=== PATIENT | male | born 1965 | race Caucasian/White ===

== ENCOUNTER 2016-04-17 10:02 | Emergency (ER) | payer OTHER ==
--- NOTE | 2016-04-17 10:42 | EDDOCDS ---
Nurse's Notes [facility] Name: Leif Leahy Age: 50 yrs Sex: Male : 1965 Arrival Date: 04/17/2016 Time: 10:02 Bed Triage 2 Private MD: [facility] Allyson Tomales Diagnosis: Dysuria;Urinary tract infection, site not specified Presentation: 04/17 10:05 Presenting complaint: Patient states: burning with urination. Reports thinks may be kr3 related to new body wash. Adult Sepsis Screening: The patient does not have new or worsening altered mentation. Patient's respiratory rate is less than 22. Systolic blood pressure is greater than 100. Patient has a qSOFA score of 0- Negative Sepsis Screen. Suicide/Homicide risk assessment- the patient denies having any suicidal and/or homicidal ideations and does not present with any other emotional, behavioral or mental health complaints. Status: Patient is not a human services program specialist or dependent. Transition of care: patient was not received from another setting of care. 10:05 Acuity: JOSE Level 4 kr3 10:05 Method Of Arrival: Walkin/Carried/Asstd kr3 Triage Assessment: 10:09 General: Appears in no apparent distress, comfortable, Behavior is cooperative. Pain: kr3 Denies pain. Pt Declines HIV testing. Respiratory: Respiratory effort is even, unlabored. : Reports burning with urination urgency urinary frequency. Derm: Skin is normal. Historical: - Allergies: no known allergies; - Home Meds: 1. loratadine 10 mg Oral tab 1 tab once daily 2. bupropion HCl 100 mg Oral TbER 300 mg once daily 3. trazodone 150 mg Oral Tb24 1 tab once daily 4. aripiprazole 10 mg Oral tab 1 tab once daily - PMHx: Anxiety; Depression; Allergies, Seasonal; - PSHx: cyst right chest benign; - Social history: Smoking status: Patient uses tobacco products, current every day smoker. No barriers to communication noted, The patient speaks fluent [place], Speaks appropriately for age. - Family history: Not pertinent. - : The pt / caregiver states he / she is not on anticoagulants. Home medication list is obtained from the patient. - Exposure Risk Screening:: None identified. Screenin:40 Screening information is obtained from the patient. Fall risk: No risks identified. ml6 Assistance ADL's: requires no assistance with activities of daily living. Abuse/DV Screen: The patient / caregiver reports he/she is: not in a situation that causes fear, pain or injury. Nutritional screening: No deficits noted. Advance Directives: Currently, there is no health care proxy. home support is adequate. Assessment: 10:40 General: Appears in no apparent distress, Behavior is appropriate for age, cooperative. ml6 Pain: Denies pain. Neurological: No deficits noted. Cardiovascular: No deficits noted. Respiratory: No deficits noted. : Reports burning with urination since X 8 DAYS. Vital Signs: 10:03 BP 159 / 72; Pulse 99; Resp 18; Temp 97.3(O); Pulse Ox 98% on R/A; Weight 95.25 kg; elp Height 5 ft. 11 in. (180.34 cm); Pain 10; 10:03 Body Mass Index 29.29 (95.25 kg, 180.34 cm) elp Vitals: 10:03 Log In Time: April 17, 2016 at 10:01. elp ED Course: 10:03 Patient visited by Ashlyn Maki PCA. elp 10:03 [facility] Tomales is Private Physician. elp 10:03 Patient moved to Waiting elp 10:04 Patient visited by Ashlyn Maki PCA. elp 10:04 Patient moved to Pre RCE elp 10:06 Triage Initiated kr3 10:13 Patient moved to Triage 2 kr3 10:15 [facility] btw 10:15 Twan Rodas MD is Attending Physician. btw 10:15 Patient visited by Ricardo Sun PA. btw 10:19 Aruna Bartlett, JUDI is Primary Nurse. ml6 10:19 Patient moved to I6 / 28 ml6 10:19 Urine Culture Sent. kr3 10:19 GC & Chlamydia Amplification Sent. kr3 10:20 Patient moved to Triage 2 ml6 10:23 [facility]. btw 10:25 [facility] is [facility]erral Physician. btw 10:25 Referral Physician role handed off by [facility] btw 10:25 Rosendo Costa is Referral Physician. btw 10:40 The patient / caregiver is instructed regarding the plan of care and ED course. ml6 10:40 No IV's were initiated during this patient's visit. No procedures done that require ml6 assistance. Point of Care Testing: Urine Dip: 10:20 pH: 5; ; Specific [place]: 1.020; Ketones: Negative; Glucose: Negative; Protein: kr3 Positive (+++); Leukocytes: Positive (++); Nitrite: Positive (+) ; Blood: Large (+++); Bilirubin: Negative ; Urobilinogen: Normal Ranges: Order Results: There are currently no results for this order. Outcome: 10:23 Discharge ordered by Provider. btw 10:40 Discharge Assessment: patient administered narcotics - no. The following High Risk ml6 Discharge criteria are identified: None. Discharged to home ambulatory. Condition: stable. Discharge instructions given to patient, Instructed on discharge instructions, follow up and referral plans. medication usage, Demonstrated understanding of instructions, medications, Pt was receptive of discharge instructions/ teaching. Prescriptions given X 1. No special radiology studies were completed. Property :Personal belongings accompany Pt. 10:41 Patient left the ED. ml6 Signatures: Anusha Reddy,RN RN kr3 Loy Gaines RN RN ml6 Ricardo Sun PA PA btw Ashlyn Maki, SHEEBA GRAVEL ROOFER elp MTDD
--- NOTE | 2016-04-17 10:42 | EDDOCDS ---
Physician Documentation [facility] Name: Leif Leahy Age: 50 yrs Sex: Male : 1965 Arrival Date: 04/17/2016 Time: 10:02 Bed Triage 2 Private MD: [facility] Disposition: 04/17/16 10:23 Discharged to Home/Self Care. Impression: Dysuria, Urinary tract infection, site not specified. - Condition is Stable. - Discharge Instructions: Dysuria, Urinary Tract Infection, [id number]. - Prescriptions for Bactrim DS 800- 160 mg Oral Tablet - take 1 tablet by ORAL route every 12 hours for 10 days; 20 tablet. - Medication Reconciliation, Local Pharmacy Hours form. - Follow up: [facility]; When: Call to arrange an appointment. Follow up: Rosendo Costa; When: Call to arrange an appointment; Reason: Further diagnostic work-up, Recheck today's complaints, Continuance of care. - Problem is new. - Symptoms are unchanged. Historical: - Allergies: no known allergies; - Home Meds: 1. loratadine 10 mg Oral tab 1 tab once daily 2. bupropion HCl 100 mg Oral TbER 300 mg once daily 3. trazodone 150 mg Oral Tb24 1 tab once daily 4. aripiprazole 10 mg Oral tab 1 tab once daily - PMHx: Anxiety; Depression; Allergies, Seasonal; - PSHx: cyst right chest benign; - Social history: Smoking status: Patient uses tobacco products, current every day smoker. No barriers to communication noted, The patient speaks fluent Irish, Speaks appropriately for age. - Family history: Not pertinent. - : The pt / caregiver states he / she is not on anticoagulants. Home medication list is obtained from the patient. - Exposure Risk Screening:: None identified. Vital Signs: 04/17 10:03 BP 159 / 72; Pulse 99; Resp 18; Temp 97.3(O); Pulse Ox 98% on R/A; Weight 95.25 kg / elp 209.99 lbs; Height 5 ft. 11 in. (180.34 cm); Pain 4/10; 10:03 Body Mass Index 29.29 (95.25 kg, 180.34 cm) elp MDM: 10:14 Urine Dip ordered. btw 10:15 Urine Culture Ordered. EDMS 10:15 GC & Chlamydia Amplification Ordered. [facility] Point of Care Testing: Urine Dip: 10:20 pH: 5; ; Specific [place]: 1.020; Ketones: Negative; Glucose: Negative; Protein: kr3 Positive (+++); Leukocytes: Positive (++); Nitrite: Positive (+) ; Blood: Large (+++); Bilirubin: Negative ; Urobilinogen: Normal Ranges: Signatures: Dispatcher [employer] Anusha VanegasRN RN kr3 Loy Gaines RN RN ml6 Ricardo Sun PA PA btw The chart was reviewed and I authenticate all verbal orders and agree with the evaluation and treatment provided.Corrections: (The following items were deleted from the chart) 10:16 10:10 URINALYSIS+LAB ordered. EDHI EDHI MTDD
--- NOTE | 2016-04-19 12:41 | EDDOCDS ---
Nurse's Notes [facility] Name: Leif Leahy Age: 50 yrs Sex: Male : 1965 Arrival Date: 04/17/2016 Time: 10:02 Bed Triage 2 Private MD: [place] Allyson Cooper Diagnosis: Dysuria;Urinary tract infection, site not specified Presentation: 04/17 10:05 Presenting complaint: Patient states: burning with urination. Reports thinks may be kr3 related to new body wash. Adult Sepsis Screening: The patient does not have new or worsening altered mentation. Patient's respiratory rate is less than 22. Systolic blood pressure is greater than 100. Patient has a qSOFA score of 0- Negative Sepsis Screen. Suicide/Homicide risk assessment- the patient denies having any suicidal and/or homicidal ideations and does not present with any other emotional, behavioral or mental health complaints. Status: Patient is not a dietary services manager or dependent. Transition of care: patient was not received from another setting of care. 10:05 Acuity: JOSE Level 4 kr3 10:05 Method Of Arrival: Walkin/Carried/Asstd kr3 Triage Assessment: 10:09 General: Appears in no apparent distress, comfortable, Behavior is cooperative. Pain: kr3 Denies pain. Pt Declines HIV testing. Respiratory: Respiratory effort is even, unlabored. : Reports burning with urination urgency urinary frequency. Derm: Skin is normal. Historical: - Allergies: no known allergies; - Home Meds: 1. loratadine 10 mg Oral tab 1 tab once daily 2. bupropion HCl 100 mg Oral TbER 300 mg once daily 3. trazodone 150 mg Oral Tb24 1 tab once daily 4. aripiprazole 10 mg Oral tab 1 tab once daily - PMHx: Anxiety; Depression; Allergies, Seasonal; - PSHx: cyst right chest benign; - Social history: Smoking status: Patient uses tobacco products, current every day smoker. No barriers to communication noted, The patient speaks fluent Nigerien, Speaks appropriately for age. - Family history: Not pertinent. - : The pt / caregiver states he / she is not on anticoagulants. Home medication list is obtained from the patient. - Exposure Risk Screening:: None identified. Screenin:40 Screening information is obtained from the patient. Fall risk: No risks identified. ml6 Assistance ADL's: requires no assistance with activities of daily living. Abuse/DV Screen: The patient / caregiver reports he/she is: not in a situation that causes fear, pain or injury. Nutritional screening: No deficits noted. Advance Directives: Currently, there is no health care proxy. home support is adequate. Assessment: 10:40 General: Appears in no apparent distress, Behavior is appropriate for age, cooperative. ml6 Pain: Denies pain. Neurological: No deficits noted. Cardiovascular: No deficits noted. Respiratory: No deficits noted. : Reports burning with urination since X 8 DAYS. Vital Signs: 10:03 BP 159 / 72; Pulse 99; Resp 18; Temp 97.3(O); Pulse Ox 98% on R/A; Weight 95.25 kg; elp Height 5 ft. 11 in. (180.34 cm); Pain 10; 10:03 Body Mass Index 29.29 (95.25 kg, 180.34 cm) elp Vitals: 10:03 Log In Time: April 17, 2016 at 10:01. elp ED Course: 10:03 Patient visited by Ashlyn Maki PCA. elp 10:03 [facility] Cooper is Private Physician. elp 10:03 Patient moved to Waiting elp 10:04 Patient visited by Ashlyn Maki PCA. elp 10:04 Patient moved to Pre RCE elp 10:06 Triage Initiated kr3 10:13 Patient moved to Triage 2 kr3 10:15 Ricardo Sun [facility]. btw 10:15 Twna Rodas MD is Attending Physician. btw 10:15 Patient visited by Ricardo Sun PA. btw 10:19 Aruna Bartlett, JUDI is Primary Nurse. ml6 10:19 Patient moved to I6 / 28 ml6 10:19 Urine Culture Sent. kr3 10:19 GC & Chlamydia Amplification Sent. kr3 10:20 Patient moved to Triage 2 ml6 10:23 [facility] btw 10:25 [facility]. btw 10:25 Referral Physician role handed off by [facility] btw 10:25 Rosendo Costa is Referral Physician. btw 10:40 The patient / caregiver is instructed regarding the plan of care and ED course. ml6 10:40 No IV's were initiated during this patient's visit. No procedures done that require ml6 assistance. 12:14 T-Sheet-- Draft Copy was scanned into [employer] and attached to record. [facility] Point of Care Testing: Urine Dip: 10:20 pH: 5; ; Specific [place]: 1.020; Ketones: Negative; Glucose: Negative; Protein: kr3 Positive (+++); Leukocytes: Positive (++); Nitrite: Positive (+) ; Blood: Large (+++); Bilirubin: Negative ; Urobilinogen: Normal Ranges: Order Results: Lab Order: Urine Culture; SPEC'M 04/17/16 10:04 Test: URINE CULTURE; Value: ORGANISM 1: PROTEUS MIRABILIS; Status: F Test: URINE CULTURE; Value: PROTEUS MIRABILIS; Status: F Test: URINE CULTURE; Value: COLONY COUNT CFU/ml >100,000; Status: F Test: URINE CULTURE; Value: GRAM NEG SENSI - VITEK 80; Status: F Test: URINE CULTURE; Value: Method: VIT2; Status: F Test: URINE CULTURE; Value: TRIMETHOPRIM/SULFAMETHOXAZOLE <=20 S; Status: F Test: URINE CULTURE; Value: AMPICILLIN >=32 R; Status: F Test: URINE CULTURE; Value: GENTAMICIN >=16 R; Status: F Test: URINE CULTURE; Value: NITROFURANTOIN 128 R; Status: F Test: URINE CULTURE; Value: CEFAZOLIN 8 S; Status: F Test: URINE CULTURE; Value: LEVOFLOXACIN <=0.12 S; Status: F Test: URINE CULTURE; Value: TOBRAMYCIN >=16 R; Status: F Test: URINE CULTURE; Value: CEFTRIAXONE <=1 S; Status: F Test: URINE CULTURE; Value: CEFTAZIDIME <=1 S; Status: F Test: URINE CULTURE; Value: AMPICILLIN/SULBACTAM >=32 R; Status: F Test: URINE CULTURE; Value: PIPERACILLIN/TAZOBACTAM <=4 S; Status: F Test: URINE CULTURE; Value: AZTREONAM <=1 S; Status: F Test: URINE CULTURE; Value: ERTAPENEM <=0.5 S; Status: F Test: URINE CULTURE; Value: MEROPENEM <=0.25 S; Status: F Test: URINE CULTURE; Value: TIGECYCLINE 4 R; Status: F Test: URINE CULTURE; Value: CEFEPIME <=1 S; Status: F Lab Order: GC & Chlamydia Amplification; SPEC'M 04/17/16 10:04 Test: CHLAMYDIA DNA AMPLIFICATION; Value: NEGATIVE; Range: NEGATIVE; Status: F Test: GC DNA AMPLIFICATION; Value: NEGATIVE; Range: NEGATIVE; Status: F Outcome: 10:23 Discharge ordered by Provider. bt 10:40 Discharge Assessment: patient administered narcotics - no. The following High Risk [facility] Discharge criteria are identified: None. Discharged to home ambulatory. Condition: stable. Discharge instructions given to patient, Instructed on discharge instructions, follow up and referral plans. medication usage, Demonstrated understanding of instructions, medications, Pt was receptive of discharge instructions/ teaching. Prescriptions given X 1. No special radiology studies were completed. Property :Personal belongings accompany Pt. 10:41 Patient left the ED. ml6 Signatures: Anusha Reddy,RN RN kr3 Loy Gaines RN RN ml6 Ricardo Sun PA PA btw Patchen, Erin, SHEEBA KINDERGARTEN TUTOR Taniya Gomez Chart Complete MTDKoko
--- NOTE | 2016-04-19 12:41 | EDDOCDS ---
Physician Documentation [facility] Name: Leif Leahy Age: 50 yrs Sex: Male : 1965 Arrival Date: 04/17/2016 Time: 10:02 Bed Triage 2 Private MD: [facility] Disposition: 04/17/16 10:23 Discharged to Home/Self Care. Impression: Dysuria, Urinary tract infection, site not specified. - Condition is Stable. - Discharge Instructions: Dysuria, Urinary Tract Infection, [id number]. - Prescriptions for Bactrim DS 800- 160 mg Oral Tablet - take 1 tablet by ORAL route every 12 hours for 10 days; 20 tablet. - Medication Reconciliation, Local Pharmacy Hours form. - Follow up: [facility]; When: Call to arrange an appointment. Follow up: Rosendo Costa; When: Call to arrange an appointment; Reason: Further diagnostic work-up, Recheck today's complaints, Continuance of care. - Problem is new. - Symptoms are unchanged. Historical: - Allergies: no known allergies; - Home Meds: 1. loratadine 10 mg Oral tab 1 tab once daily 2. bupropion HCl 100 mg Oral TbER 300 mg once daily 3. trazodone 150 mg Oral Tb24 1 tab once daily 4. aripiprazole 10 mg Oral tab 1 tab once daily - PMHx: Anxiety; Depression; Allergies, Seasonal; - PSHx: cyst right chest benign; - Social history: Smoking status: Patient uses tobacco products, current every day smoker. No barriers to communication noted, The patient speaks fluent Hungarian, Speaks appropriately for age. - Family history: Not pertinent. - : The pt / caregiver states he / she is not on anticoagulants. Home medication list is obtained from the patient. - Exposure Risk Screening:: None identified. Vital Signs: 04/17 10:03 BP 159 / 72; Pulse 99; Resp 18; Temp 97.3(O); Pulse Ox 98% on R/A; Weight 95.25 kg / elp 209.99 lbs; Height 5 ft. 11 in. (180.34 cm); Pain 4/10; 10:03 Body Mass Index 29.29 (95.25 kg, 180.34 cm) elp MDM: 10:14 Urine Dip ordered. btw 10:15 Urine Culture Ordered. EDMS 10:15 GC & Chlamydia Amplification Ordered. EDMS 12:14 T-Sheet-- Draft Copy was scanned into [employer] and attached to record. [facility] Point of Care Testing: Urine Dip: 10:20 pH: 5; ; Specific [place]: 1.020; Ketones: Negative; Glucose: Negative; Protein: kr3 Positive (+++); Leukocytes: Positive (++); Nitrite: Positive (+) ; Blood: Large (+++); Bilirubin: Negative ; Urobilinogen: Normal Ranges: Signatures: Dispatcher [employer] EDMS Anusha Reddy,RN RN kr3 Loy Gaines RN RN ml6 Ricardo Sun PA PA [facility] Taniya Simon [facility] The chart was reviewed and I authenticate all verbal orders and agree with the evaluation and treatment provided.Corrections: (The following items were deleted from the chart) 10:16 10:10 URINALYSIS+LAB ordered. EDMS EDMS Attachments: 12:14 T-Sheet-- Draft Copy [facility] Chart Complete [facility]
--- NOTE | 2016-04-19 12:41 | EDDOCDS ---
Physician Documentation [facility] Name: Leif Leahy Age: 50 yrs Sex: Male : 1965 Arrival Date: 04/17/2016 Time: 10:02 Bed Triage 2 Private MD: [facility] Disposition: 04/17/16 10:23 Discharged to Home/Self Care. Impression: Dysuria, Urinary tract infection, site not specified. - Condition is Stable. - Discharge Instructions: Dysuria, Urinary Tract Infection, [id number]. - Prescriptions for Bactrim DS 800- 160 mg Oral Tablet - take 1 tablet by ORAL route every 12 hours for 10 days; 20 tablet. - Medication Reconciliation, Local Pharmacy Hours form. - Follow up: [facility]; When: Call to arrange an appointment. Follow up: Rosendo Costa; When: Call to arrange an appointment; Reason: Further diagnostic work-up, Recheck today's complaints, Continuance of care. - Problem is new. - Symptoms are unchanged. Historical: - Allergies: no known allergies; - Home Meds: 1. loratadine 10 mg Oral tab 1 tab once daily 2. bupropion HCl 100 mg Oral TbER 300 mg once daily 3. trazodone 150 mg Oral Tb24 1 tab once daily 4. aripiprazole 10 mg Oral tab 1 tab once daily - PMHx: Anxiety; Depression; Allergies, Seasonal; - PSHx: cyst right chest benign; - Social history: Smoking status: Patient uses tobacco products, current every day smoker. No barriers to communication noted, The patient speaks fluent Vietnamese, Speaks appropriately for age. - Family history: Not pertinent. - : The pt / caregiver states he / she is not on anticoagulants. Home medication list is obtained from the patient. - Exposure Risk Screening:: None identified. Vital Signs: 04/17 10:03 BP 159 / 72; Pulse 99; Resp 18; Temp 97.3(O); Pulse Ox 98% on R/A; Weight 95.25 kg / elp 209.99 lbs; Height 5 ft. 11 in. (180.34 cm); Pain 4/10; 10:03 Body Mass Index 29.29 (95.25 kg, 180.34 cm) elp MDM: 10:14 Urine Dip ordered. btw 10:15 Urine Culture Ordered. EDMS 10:15 GC & Chlamydia Amplification Ordered. EDMS 12:14 T-Sheet-- Draft Copy was scanned into [employer] and attached to record. [facility] Point of Care Testing: Urine Dip: 10:20 pH: 5; ; Specific [place]: 1.020; Ketones: Negative; Glucose: Negative; Protein: kr3 Positive (+++); Leukocytes: Positive (++); Nitrite: Positive (+) ; Blood: Large (+++); Bilirubin: Negative ; Urobilinogen: Normal Ranges: Signatures: Dispatcher [employer] EDMS Anusha Reddy,RN RN kr3 Loy Gaines RN RN ml6 Ricardo Sun PA PA [facility] Taniya Simon [facility] The chart was reviewed and I authenticate all verbal orders and agree with the evaluation and treatment provided.Corrections: (The following items were deleted from the chart) 10:16 10:10 URINALYSIS+LAB ordered. EDMS EDMS Attachments: 12:14 T-Sheet-- Draft Copy [facility]
--- NOTE | 2016-04-19 15:54 | EDDOCDS ---
Physician Documentation [facility] Name: Leif Leahy Age: 50 yrs Sex: Male : 1965 Arrival Date: 04/17/2016 Time: 10:02 Bed Triage 2 Private MD: [facility] Disposition: 04/17/16 10:23 Discharged to Home/Self Care. Impression: Dysuria, Urinary tract infection, site not specified. - Condition is Stable. - Discharge Instructions: Dysuria, Urinary Tract Infection, [id number]. - Prescriptions for Bactrim DS 800- 160 mg Oral Tablet - take 1 tablet by ORAL route every 12 hours for 10 days; 20 tablet. - Medication Reconciliation, Local Pharmacy Hours form. - Follow up: [facility]; When: Call to arrange an appointment. Follow up: Rosendo Costa; When: Call to arrange an appointment; Reason: Further diagnostic work-up, Recheck today's complaints, Continuance of care. - Problem is new. - Symptoms are unchanged. Historical: - Allergies: no known allergies; - Home Meds: 1. loratadine 10 mg Oral tab 1 tab once daily 2. bupropion HCl 100 mg Oral TbER 300 mg once daily 3. trazodone 150 mg Oral Tb24 1 tab once daily 4. aripiprazole 10 mg Oral tab 1 tab once daily - PMHx: Anxiety; Depression; Allergies, Seasonal; - PSHx: cyst right chest benign; - Social history: Smoking status: Patient uses tobacco products, current every day smoker. No barriers to communication noted, The patient speaks fluent Lao, Speaks appropriately for age. - Family history: Not pertinent. - : The pt / caregiver states he / she is not on anticoagulants. Home medication list is obtained from the patient. - Exposure Risk Screening:: None identified. Vital Signs: 04/17 10:03 BP 159 / 72; Pulse 99; Resp 18; Temp 97.3(O); Pulse Ox 98% on R/A; Weight 95.25 kg / elp 209.99 lbs; Height 5 ft. 11 in. (180.34 cm); Pain 4/10; 10:03 Body Mass Index 29.29 (95.25 kg, 180.34 cm) elp MDM: 10:14 Urine Dip ordered. btw 10:15 Urine Culture Ordered. EDMS 10:15 GC & Chlamydia Amplification Ordered. EDMS 12:14 T-Sheet-- Draft Copy was scanned into [employer] and attached to record. [facility] Point of Care Testing: Urine Dip: 10:20 pH: 5; ; Specific [place]: 1.020; Ketones: Negative; Glucose: Negative; Protein: kr3 Positive (+++); Leukocytes: Positive (++); Nitrite: Positive (+) ; Blood: Large (+++); Bilirubin: Negative ; Urobilinogen: Normal Ranges: Signatures: Dispatcher [employer] EDMS Anusha Reddy,RN RN kr3 Loy Gaines RN RN ml6 Ricardo Sun PA PA [facility] Taniya Simon [facility] The chart was reviewed and I authenticate all verbal orders and agree with the evaluation and treatment provided.Corrections: (The following items were deleted from the chart) 10:16 10:10 URINALYSIS+LAB ordered. EDMS EDMS Attachments: 12:14 T-Sheet-- Draft Copy [facility] Chart [facility]
--- NOTE | 2016-04-19 15:54 | EDDOCDS ---
Physician Documentation [facility] Name: Leif Leahy Age: 50 yrs Sex: Male : 1965 Arrival Date: 04/17/2016 Time: 10:02 Bed Triage 2 Private MD: [facility] Disposition: 04/17/16 10:23 Discharged to Home/Self Care. Impression: Dysuria, Urinary tract infection, site not specified. - Condition is Stable. - Discharge Instructions: Dysuria, Urinary Tract Infection, [id number]. - Prescriptions for Bactrim DS 800- 160 mg Oral Tablet - take 1 tablet by ORAL route every 12 hours for 10 days; 20 tablet. - Medication Reconciliation, Local Pharmacy Hours form. - Follow up: [facility]; When: Call to arrange an appointment. Follow up: Rosendo Costa; When: Call to arrange an appointment; Reason: Further diagnostic work-up, Recheck today's complaints, Continuance of care. - Problem is new. - Symptoms are unchanged. Historical: - Allergies: no known allergies; - Home Meds: 1. loratadine 10 mg Oral tab 1 tab once daily 2. bupropion HCl 100 mg Oral TbER 300 mg once daily 3. trazodone 150 mg Oral Tb24 1 tab once daily 4. aripiprazole 10 mg Oral tab 1 tab once daily - PMHx: Anxiety; Depression; Allergies, Seasonal; - PSHx: cyst right chest benign; - Social history: Smoking status: Patient uses tobacco products, current every day smoker. No barriers to communication noted, The patient speaks fluent Turkmen, Speaks appropriately for age. - Family history: Not pertinent. - : The pt / caregiver states he / she is not on anticoagulants. Home medication list is obtained from the patient. - Exposure Risk Screening:: None identified. Vital Signs: 04/17 10:03 BP 159 / 72; Pulse 99; Resp 18; Temp 97.3(O); Pulse Ox 98% on R/A; Weight 95.25 kg / elp 209.99 lbs; Height 5 ft. 11 in. (180.34 cm); Pain 4/10; 10:03 Body Mass Index 29.29 (95.25 kg, 180.34 cm) elp MDM: 10:14 Urine Dip ordered. btw 10:15 Urine Culture Ordered. EDMS 10:15 GC & Chlamydia Amplification Ordered. EDMS 12:14 T-Sheet-- Draft Copy was scanned into [employer] and attached to record. [facility] Point of Care Testing: Urine Dip: 10:20 pH: 5; ; Specific [place]: 1.020; Ketones: Negative; Glucose: Negative; Protein: kr3 Positive (+++); Leukocytes: Positive (++); Nitrite: Positive (+) ; Blood: Large (+++); Bilirubin: Negative ; Urobilinogen: Normal Ranges: Signatures: Dispatcher [employer] EDMS Anusha Reddy,RN RN kr3 Loy Gaines RN RN ml6 Ricardo Sun PA PA [facility] Taniya Simon [facility] The chart was reviewed and I authenticate all verbal orders and agree with the evaluation and treatment provided.Corrections: (The following items were deleted from the chart) 10:16 10:10 URINALYSIS+LAB ordered. EDMS EDMS Attachments: 12:14 T-Sheet-- Draft Copy [facility] Chart Complete [facility]
--- NOTE | 2016-04-19 15:54 | EDDOCDS ---
Nurse's Notes [facility] Name: Leif Leahy Age: 50 yrs Sex: Male : 1965 Arrival Date: 04/17/2016 Time: 10:02 Bed Triage 2 Private MD: [place] [facility] [place] Diagnosis: Dysuria;Urinary tract infection, site not specified Presentation: 04/17 10:05 Presenting complaint: Patient states: burning with urination. Reports thinks may be kr3 related to new body wash. Adult Sepsis Screening: The patient does not have new or worsening altered mentation. Patient's respiratory rate is less than 22. Systolic blood pressure is greater than 100. Patient has a qSOFA score of 0- Negative Sepsis Screen. Suicide/Homicide risk assessment- the patient denies having any suicidal and/or homicidal ideations and does not present with any other emotional, behavioral or mental health complaints. Status: Patient is not a learning support services director or dependent. Transition of care: patient was not received from another setting of care. 10:05 Acuity: JOSE Level 4 kr3 10:05 Method Of Arrival: Walkin/Carried/Asstd kr3 Triage Assessment: 10:09 General: Appears in no apparent distress, comfortable, Behavior is cooperative. Pain: kr3 Denies pain. Pt Declines HIV testing. Respiratory: Respiratory effort is even, unlabored. : Reports burning with urination urgency urinary frequency. Derm: Skin is normal. Historical: - Allergies: no known allergies; - Home Meds: 1. loratadine 10 mg Oral tab 1 tab once daily 2. bupropion HCl 100 mg Oral TbER 300 mg once daily 3. trazodone 150 mg Oral Tb24 1 tab once daily 4. aripiprazole 10 mg Oral tab 1 tab once daily - PMHx: Anxiety; Depression; Allergies, Seasonal; - PSHx: cyst right chest benign; - Social history: Smoking status: Patient uses tobacco products, current every day smoker. No barriers to communication noted, The patient speaks fluent Salvadorean, Speaks appropriately for age. - Family history: Not pertinent. - : The pt / caregiver states he / she is not on anticoagulants. Home medication list is obtained from the patient. - Exposure Risk Screening:: None identified. Screenin:40 Screening information is obtained from the patient. Fall risk: No risks identified. ml6 Assistance ADL's: requires no assistance with activities of daily living. Abuse/DV Screen: The patient / caregiver reports he/she is: not in a situation that causes fear, pain or injury. Nutritional screening: No deficits noted. Advance Directives: Currently, there is no health care proxy. home support is adequate. Assessment: 10:40 General: Appears in no apparent distress, Behavior is appropriate for age, cooperative. ml6 Pain: Denies pain. Neurological: No deficits noted. Cardiovascular: No deficits noted. Respiratory: No deficits noted. : Reports burning with urination since X 8 DAYS. Vital Signs: 10:03 BP 159 / 72; Pulse 99; Resp 18; Temp 97.3(O); Pulse Ox 98% on R/A; Weight 95.25 kg; elp Height 5 ft. 11 in. (180.34 cm); Pain 10; 10:03 Body Mass Index 29.29 (95.25 kg, 180.34 cm) elp Vitals: 10:03 Log In Time: April 17, 2016 at 10:01. elp ED Course: 10:03 Patient visited by Ashlyn Maki PCA. elp 10:03 [facility] [place] is Private Physician. elp 10:03 Patient moved to Waiting elp 10:04 Patient visited by Ashlyn Maki PCA. elp 10:04 Patient moved to Pre RCE elp 10:06 Triage Initiated kr3 10:13 Patient moved to Triage 2 kr3 10:15 [facility] btw 10:15 Twan Rodas MD is Attending Physician. btw 10:15 Patient visited by Ricardo Sun PA. btw 10:19 Aruna Bartlett, JUDI is Primary Nurse. ml6 10:19 Patient moved to I6 / 28 ml6 10:19 Urine Culture Sent. kr3 10:19 GC & Chlamydia Amplification Sent. kr3 10:20 Patient moved to Triage 2 ml6 10:23 [facility] is Referral Physician. btw 10:25 [facility] is Referral Physician. btw 10:25 Referral Physician role handed off by [facility] btw 10:25 Rosendo Costa is Referral Physician. btw 10:40 The patient / caregiver is instructed regarding the plan of care and ED course. ml6 10:40 No IV's were initiated during this patient's visit. No procedures done that require ml6 assistance. 12:14 T-Sheet-- Draft Copy was scanned into [employer] and attached to record. [facility] Point of Care Testing: Urine Dip: 10:20 pH: 5; ; Specific [place]: 1.020; Ketones: Negative; Glucose: Negative; Protein: kr3 Positive (+++); Leukocytes: Positive (++); Nitrite: Positive (+) ; Blood: Large (+++); Bilirubin: Negative ; Urobilinogen: Normal Ranges: Order Results: Lab Order: Urine Culture; SPEC'M 04/17/16 10:04 Test: URINE CULTURE; Value: ORGANISM 1: PROTEUS MIRABILIS; Status: F Test: URINE CULTURE; Value: PROTEUS MIRABILIS; Status: F Test: URINE CULTURE; Value: COLONY COUNT CFU/ml >100,000; Status: F Test: URINE CULTURE; Value: GRAM NEG SENSI - VITEK 80; Status: F Test: URINE CULTURE; Value: Method: VIT2; Status: F Test: URINE CULTURE; Value: TRIMETHOPRIM/SULFAMETHOXAZOLE <=20 S; Status: F Test: URINE CULTURE; Value: AMPICILLIN >=32 R; Status: F Test: URINE CULTURE; Value: GENTAMICIN >=16 R; Status: F Test: URINE CULTURE; Value: NITROFURANTOIN 128 R; Status: F Test: URINE CULTURE; Value: CEFAZOLIN 8 S; Status: F Test: URINE CULTURE; Value: LEVOFLOXACIN <=0.12 S; Status: F Test: URINE CULTURE; Value: TOBRAMYCIN >=16 R; Status: F Test: URINE CULTURE; Value: CEFTRIAXONE <=1 S; Status: F Test: URINE CULTURE; Value: CEFTAZIDIME <=1 S; Status: F Test: URINE CULTURE; Value: AMPICILLIN/SULBACTAM >=32 R; Status: F Test: URINE CULTURE; Value: PIPERACILLIN/TAZOBACTAM <=4 S; Status: F Test: URINE CULTURE; Value: AZTREONAM <=1 S; Status: F Test: URINE CULTURE; Value: ERTAPENEM <=0.5 S; Status: F Test: URINE CULTURE; Value: MEROPENEM <=0.25 S; Status: F Test: URINE CULTURE; Value: TIGECYCLINE 4 R; Status: F Test: URINE CULTURE; Value: CEFEPIME <=1 S; Status: F Lab Order: GC & Chlamydia Amplification; SPEC'M 04/17/16 10:04 Test: CHLAMYDIA DNA AMPLIFICATION; Value: NEGATIVE; Range: NEGATIVE; Status: F Test: GC DNA AMPLIFICATION; Value: NEGATIVE; Range: NEGATIVE; Status: F Outcome: 10:23 Discharge ordered by Provider. bt 10:40 Discharge Assessment: patient administered narcotics - no. The following High Risk [facility] Discharge criteria are identified: None. Discharged to home ambulatory. Condition: stable. Discharge instructions given to patient, Instructed on discharge instructions, follow up and referral plans. medication usage, Demonstrated understanding of instructions, medications, Pt was receptive of discharge instructions/ teaching. Prescriptions given X 1. No special radiology studies were completed. Property :Personal belongings accompany Pt. 10:41 Patient left the ED. ml6 Signatures: Anusha Reddy,RN RN kr3 Loy Gaines RN RN ml6 Ricardo Sun PA PA btw Patchen, Erin, SHEEBA DERRICK FOLLOWER Taniya Gomez Chart Complete [facility]
== END 2016-04-17 10:41 | disposition home or self-care (01) ==
LOC: M ED 10:02
DX: N30.01 Acute cystitis with hematuria (principal); F32.9 Major depressive disorder, single episode, unspecified; F41.9 Anxiety disorder, unspecified; J30.9 Allergic rhinitis, unspecified; F17.210 Nicotine dependence, cigarettes, uncomplicated; Z79.899 Other long term (current) drug therapy

== ENCOUNTER 2016-10-05 19:03 | Emergency (ER) | payer OTHER ==
[~2016-10-05] VITALS: Ht 180.3 cm; Wt 88.5 kg
[2016-10-05] MEDS ORDERED: ARIP1TAB (19:35)
[2016-10-05] MEDS ORDERED: TRAZ1TAB14 (19:35)
[2016-10-05] MEDS ORDERED: BUPR100T3 (19:35)
[2016-10-05] MEDS ORDERED: PENI500T PO (19:57)
[2016-10-05] MEDS ORDERED: CORT1SOL3 OT (19:57)
[2016-10-05 20:02] VITALS: BP 130/74
== END 2016-10-05 20:08 | disposition home or self-care (01) ==
LOC: M ED 19:03
DX: H60.92 Unspecified otitis externa, left ear (principal); R22.0 Localized swelling, mass and lump, head; F17.200 Nicotine dependence, unspecified, uncomplicated

== ENCOUNTER 2018-07-04 14:53 | Emergency (ER) | payer OTHER ==
[~2018-07-04] VITALS: Ht 180.3 cm; Wt 94.6 kg
[~2018-07-04 14:53] MED LIST: ARIP1TAB; BUPR100T3; CORT1SOL3 OT; PENI500T PO; TRAZ1TAB14
[2018-07-04 14:54] VITALS: BP 143/72
[2018-07-04] MEDS ORDERED: ACET1TAB55 PO (14:59)
[2018-07-04] MEDS ORDERED: NAPR-837 PO (16:05)
[2018-07-04] MEDS ORDERED: ROBA500T PO (16:05)
== END 2018-07-04 16:43 | disposition home or self-care (01) ==
LOC: M ED 14:53
DX: M62.830 Muscle spasm of back (principal); S39.012A Strain of muscle, fascia and tendon of lower back, initial encounter; X50.9XXA Other and unspecified overexertion or strenuous movements or postures, initial encounter; Y92.89 Other specified places as the place of occurrence of the external cause; F41.9 Anxiety disorder, unspecified; Z79.899 Other long term (current) drug therapy; F17.210 Nicotine dependence, cigarettes, uncomplicated

== ENCOUNTER → 2018-07-16 | Outpatient (REF) | payer OTHER ==
[~2018-07-16] MED LIST changes: +ACET1TAB55 PO; +NAPR-837 PO; +ROBA500T PO
[2018-07-16 17:02] LABS: INFLUENZA A AMPLIFICATION POSITIVE (NEGATIVE); INFLUENZA B AMPLIFICATION NEGATIVE (NEGATIVE)
== END ==
LOC: M LAB REF 16:19
PROVIDERS: ATTEND Physician Assistant Medical
DX: J11.1 Influenza due to unidentified influenza virus with other respiratory manifestations (principal)

== ENCOUNTER → 2020-04-17 | Outpatient (CLI) | payer BC ==
--- NOTE | 2020-04-17 10:15 | REP ---
INDICATION: DEVIATED NASAL SEPTUM. COMPARISON: NONE. TECHNIQUE: Helical scanning is acquired and 2 mm axial images re-formatted. Coronal MPR images are generated and reviewed. FINDINGS: Digital lateral household refrigerator mechanic view and axial images demonstrate mild retrognathia with overbite. No bony destructive lesion is seen. The maxillary sinuses are clear. Frontal sinuses are clear. There is no evidence of ethmoid or sphenoid sinus opacification. Mastoid aeration is normal on the right. The mastoid sinuses are diffusely opacified on the left however consistent with mastoiditis. The right middle ear cavity is aerated. The internal auditory canals appear intact. Vestibular and cochlear apparatus are symmetric and appear normal. There is partial filling however of the middle ear cavity on the left adjacent to the middle ear ossicles. The scutum is intact no bony erosive changes seen. The left TM appears somewhat retracted. The nasal septum deviates to the left with a cyst fairly prominent septal beak. There is no evidence of nasal polyp. Ostiomeatal complexes are widely patent. There is mild narrowing and spurring of the temporomandibular joint on the left. IMPRESSION: 1. Evidence of left mastoiditis. 2. Soft tissue density adjacent to the ossicles in the left middle ear cavity with retraction of the left tympanic membrane. Otitis media versus cholesteatoma. No bony erosive change seen. 3. Leftward deviation of the nasal septum with prominent septal beak. 4. Mild Retrognathia with overbite. <Electronically signed by Adam Calhoun > 04/17/20 [id number]
== END ==
LOC: M RAD 09:35
PROVIDERS: ATTEND Specialist
DX: J34.2 Deviated nasal septum (principal); M26.19 Other specified anomalies of jaw-cranial base relationship

== ENCOUNTER → 2020-05-18 | Outpatient (CLI) | payer SELFPAY | LOC: M LABSMTC 10:57 | PROVIDERS: ATTEND Pediatrics | DX: Z20.822 Contact with and (suspected) exposure to COVID-19 (principal) ==

== ENCOUNTER → 2020-06-10 | Outpatient (CLI) | payer BC ==
[~2020-06-10] MED LIST changes: +ARIP1TAB6 PO; +BUPR-69 PO; +TRAZ150T90 PO; +ZYRTTAB8 PO
== END ==
LOC: M LABSMTC 12:26
PROVIDERS: ATTEND Anesthesiology
DX: Z01.812 Encounter for preprocedural laboratory examination (principal); Z20.822 Contact with and (suspected) exposure to COVID-19

== ENCOUNTER 2020-06-15 06:59 | Day surgery (SDC) | payer BC ==
[~2020-06-15] VITALS: Ht 180.3 cm; Wt 93.9 kg
[2020-06-15] MEDS ORDERED: LR 1,000 ML IV ONE (07:00)
[2020-06-15] MEDS ORDERED: LIDOCAINE 2% 100MG/5ML SDV (FOR ANES.) As Ordered ONE (07:17)
[2020-06-15] MEDS ORDERED: fentaNYL 100 MCG/2 ML INJECTION (J3010) As Ordered ONE (07:17)
[2020-06-15] MEDS ORDERED: propofoL 200 MG/20 ML VIAL As Ordered ONE (07:17)
[2020-06-15] MEDS ORDERED: MIDAZOLAM INJ 2MG/2ML VIAL (J2250 PER 1MG) As Ordered ONE (07:18)
[2020-06-15] MEDS ORDERED: CIPRODEX OTIC SUSP 7.5ML As Ordered ONE (07:55)
[2020-06-15] MEDS ORDERED: EPINEPHrine 1MG/ML INJ 30ML MD-VIAL As Ordered ONE (08:20)
[2020-06-15] MEDS ORDERED: ONDANSETRON 4MG/2ML VIAL As Ordered ONE (08:39)
[2020-06-15] MEDS ORDERED: ONDANSETRON 4MG/2ML VIAL IV PRN (08:55)
[2020-06-15] MEDS ORDERED: METOCLOPRAMIDE INJ 10MG/2ML VIAL (J2765 PER 1) IV PRN (08:55)
[2020-06-15] MEDS ORDERED: LR 1,000 ML IV SCH (08:55)
[2020-06-15] MEDS ORDERED: PERCOCET 5MG/325MG TAB PO PRN (08:55)
[2020-06-15] MEDS ORDERED: fentaNYL 100 MCG/2 ML INJECTION (J3010) IV PRN (08:55)
[2020-06-15 09:42] VITALS: BP 137/73
--- NOTE | 2020-06-15 10:03 | RO ---
OPERATIVE NOTE DATE OF OPERATION: 06/15/2020 PREOPERATIVE DIAGNOSIS: Left chronic secretory otitis media. POSTOPERATIVE DIAGNOSIS: Left chronic secretory otitis media. PROCEDURE: Left myringotomy with tube. SURGEON: Julien Arce MD GOLF COURSE STARTER: ANESTHESIA: INDICATIONS: This is a 54-year-old who presents with a greater than one year history of decreased hearing of his left ear, felt to be secondary to middle ear effusion. It was not possible to place a tube in his ear in the office as he had a remarkable and difficult anterior canal hub obliterating the view of the anterior portion of the tympanic membrane. DESCRIPTION OF PROCEDURE: Satisfactory mask anesthesia was administered. The left ear was examined under the microscope and with a speculum, the anterior canal was pushed forward, trying to reveal as much of the anterior tympanic membrane as possible. It was possible to see the anteroinferior portion of the drum, most of its area so an anteroinferior myringotomy was made. Serous fluid was suctioned and then a bevel bobbin tube was inserted. There was no attempt to place a T-tube in this area as it would have been impossible to do without macerating the anterior canal and impairing the exposure of the tympanic membrane. After Ciprodex drops were placed in the area and the tube seated properly, the patient was then awakened, extubated and sent to the recovery room in satisfactory condition. He will be seen back in the office in one week.
== END 2020-06-15 09:42 | disposition home or self-care (01) ==
LOC: M SDC 06:59
PROVIDERS: ATTEND Specialist
DX: H65.22 Chronic serous otitis media, left ear (principal); K21.9 Gastro-esophageal reflux disease without esophagitis; F03.90 Unspecified dementia, unspecified severity, without behavioral disturbance, psychotic disturbance, mood disturbance, and anxiety; K76.9 Liver disease, unspecified; Z79.899 Other long term (current) drug therapy; F17.218 Nicotine dependence, cigarettes, with other nicotine-induced disorders
CPT/HCPCS: 69436; J2250; J3010

== ENCOUNTER → 2020-07-08 | Outpatient (CLI) | payer BC ==
[~2020-07-08] MED LIST changes: +BUPR100T3 PO
== END ==
LOC: M LABSMTC 12:02
PROVIDERS: ATTEND Anesthesiology
DX: Z01.812 Encounter for preprocedural laboratory examination (principal)

== ENCOUNTER → 2020-07-10 | Outpatient (CLI) | payer BC ==
[~2020-07-10] MED LIST changes: +ZYRTTAB8
--- NOTE | 2020-07-10 17:22 | ECGEPIP ---
[facility] Test Date: 2020-07-10 Pat Name: JOHN HUMMEL Department: Room: - Gender: Male Abstract Checker: FREDERICK : 1965 Requested By: DENNY Tavarez Order Number: [id number] Reading MD: Avtar Begum Measurements Intervals [place] Rate: 59 P: 60 IN: 150 QRS: 62 QRSD: 84 T: 55 QT: 412 QTc: 407 Interpretive Statements Sinus bradycardia Comparison tracing not on file Electronically Signed on 07-10-2020 17:22:01 EDT by Avtar Begum
== END ==
LOC: M EKG 13:51
PROVIDERS: ATTEND Anesthesiology
DX: Z01.818 Encounter for other preprocedural examination (principal)

== ENCOUNTER 2020-07-13 06:04 | Day surgery (SDC) | payer BC ==
[~2020-07-13] VITALS: Ht 180.3 cm; Wt 93.9 kg
[~2020-07-13 06:04] MED LIST changes: -ZYRTTAB8
[2020-07-13] MEDS ORDERED: ZYRTTAB8 (06:37)
[2020-07-13] MEDS ORDERED: LIDOCAINE W/EPINEPHRINE 1% 20ML VIAL As Ordered ONE (07:09)
[2020-07-13] MEDS ORDERED: METHYLENE BLUE 0.5% (5MG/ML) 10 ML AMP (PROVAYBLUE) As Ordered ONE (07:09)
[2020-07-13] MEDS ORDERED: OXYMETAZOLINE 0.05% NASAL SPRAY (AFRIN) As Ordered ONE (07:10)
[2020-07-13] MEDS ORDERED: LR 1,000 ML IV ONE (07:10)
[2020-07-13] MEDS ORDERED: propofoL 200 MG/20 ML VIAL As Ordered ONE (07:16)
[2020-07-13] MEDS ORDERED: dexameTHASONE 4 MG/ML 1ML VIAL (J1100 PER 1MG) As Ordered ONE (07:16)
[2020-07-13] MEDS ORDERED: LIDOCAINE 2% 100MG/5ML SDV (FOR ANES.) As Ordered ONE (07:16)
[2020-07-13] MEDS ORDERED: ONDANSETRON 4MG/2ML VIAL As Ordered ONE (07:16)
[2020-07-13] MEDS ORDERED: ROCURONIUM BROMIDE 50 MG/5 ML VIAL As Ordered ONE (07:16)
[2020-07-13] MEDS ORDERED: MIDAZOLAM INJ 2MG/2ML VIAL (J2250 PER 1MG) As Ordered ONE (07:16)
[2020-07-13] MEDS ORDERED: fentaNYL 100 MCG/2 ML INJECTION (J3010) As Ordered ONE (07:19)
[2020-07-13] MEDS ORDERED: HYDROmorphone HCL 2 MG/ML 1ML VIAL (J1170) As Ordered ONE (08:10)
[2020-07-13] MEDS ORDERED: SUGAMMADEX SODIUM 500 MG/5 ML VIAL (BRIDION) As Ordered ONE (08:10)
[2020-07-13] MEDS ORDERED: oxyCODONE 5MG TAB PO PRN (08:55)
[2020-07-13] MEDS ORDERED: ONDANSETRON 4MG/2ML VIAL IV PRN (08:55)
[2020-07-13] MEDS ORDERED: LR 1,000 ML IV SCH (08:55)
[2020-07-13] MEDS ORDERED: fentaNYL 100 MCG/2 ML INJECTION (J3010) IV PRN (08:55)
[2020-07-13] MEDS ORDERED: IBUPROFEN 800 MG TAB PO PRN (08:55)
[2020-07-13] MEDS ORDERED: PERCOCET 5MG/325MG TAB PO PRN (08:55)
[2020-07-13 10:06] VITALS: BP 162/70
== END 2020-07-13 10:06 | disposition home or self-care (01) ==
LOC: M SDC 06:04
PROVIDERS: ATTEND Specialist
DX: J34.2 Deviated nasal septum (principal); J31.0 Chronic rhinitis; K76.9 Liver disease, unspecified; R51.9 Headache, unspecified; R06.83 Snoring; Z79.899 Other long term (current) drug therapy; F32.9 Major depressive disorder, single episode, unspecified; F17.218 Nicotine dependence, cigarettes, with other nicotine-induced disorders
CPT/HCPCS: 30140; 30520; 88300; J1100; J1170; J2250; J2405; J3010; Q9968

== ENCOUNTER 2021-09-01 14:58 | Emergency (ER) | payer BC ==
[~2021-09-01] VITALS: Ht 180.3 cm; Wt 98.8 kg
[~2021-09-01 14:58] MED LIST changes: +ARIP10TA32; -ARIP1TAB; +BUPR-70; +BUPR-70 PO; -BUPR100T3; -BUPR100T3 PO; +ZYRTTAB8
[2021-09-01 15:00] VITALS: BP 168/76
[2021-09-01] MEDS ORDERED: NAPR220C23 PO (17:24)
[2021-09-01] MEDS ORDERED: FLON27.5 NARES (17:24)
[2021-09-01] MEDS ORDERED: LIDOCAINE 1% MDV 20ML VIAL SC ONE (17:25)
[2021-09-01] MEDS ORDERED: NEOSPORIN OINT 0.9 GM PKT TOP ONE (17:25)
[2021-09-01] MEDS ORDERED: BOOSTRIX/ADACEL VACCINE (DIPHTH/PERTUSS/ACELL/TETANUS) 0.5ML SYR IM ONE (17:25)
== END 2021-09-01 18:21 | disposition home or self-care (01) ==
LOC: M ED 14:58
DX: S61.011A Laceration without foreign body of right thumb without damage to nail, initial encounter (principal); W26.8XXA Contact with other sharp object(s), not elsewhere classified, initial encounter; Y92.9 Unspecified place or not applicable; Y93.9 Activity, unspecified; Y99.0 Civilian activity done for income or pay; F17.200 Nicotine dependence, unspecified, uncomplicated; Z79.899 Other long term (current) drug therapy; Z23 Encounter for immunization

== ENCOUNTER 2021-09-09 14:52 | Emergency (ER) | payer OTHER, BC ==
[~2021-09-09] VITALS: Ht 180.3 cm; Wt 95.5 kg
[2021-09-09 14:52] VITALS: BP 144/67
[~2021-09-09 14:52] MED LIST changes: +FLON27.5 NARES; +NAPR220C23 PO
== END 2021-09-09 17:37 | disposition home or self-care (01) ==
LOC: M ED 14:52
DX: Z48.02 Encounter for removal of sutures (principal)

== ENCOUNTER → 2022-07-12 | Outpatient (REF) | payer BC, OTHER | LOC: M LAB REF 21:21 | PROVIDERS: ATTEND Physician Assistant Medical | DX: E50.9 Vitamin A deficiency, unspecified (principal) ==

== ENCOUNTER 2023-06-09 08:01 | Day surgery (SDC) | payer BC, OTHER ==
[~2023-06-09] VITALS: Ht 177.8 cm; Wt 88.9 kg
[~2023-06-09 08:01] MED LIST changes: +IBUP200T46 PO
[2023-06-09] MEDS: NS 1,000 ML IV ONE (08:15)
[2023-06-09] MEDS ORDERED: propofoL 200 MG/20 ML VIAL As Ordered ONE (09:40)
[2023-06-09 09:55] VITALS: TEMP 97.5
[2023-06-09 10:12] VITALS: BP 128/66; O2SAT 98
== END 2023-06-09 10:31 | disposition home or self-care (01) ==
LOC: M OPP 08:01
PROVIDERS: ATTEND Internal Medicine Gastroenterology
DX: Z12.11 Encounter for screening for malignant neoplasm of colon (principal); D12.4 Benign neoplasm of descending colon; D12.3 Benign neoplasm of transverse colon; D12.7 Benign neoplasm of rectosigmoid junction; K64.8 Other hemorrhoids; K64.4 Residual hemorrhoidal skin tags; Z86.010 Personal history of colon polyps; K21.9 Gastro-esophageal reflux disease without esophagitis; Z79.899 Other long term (current) drug therapy; F17.210 Nicotine dependence, cigarettes, uncomplicated; Z90.49 Acquired absence of other specified parts of digestive tract

== ENCOUNTER 2023-11-10 08:16 | Day surgery (SDC) | payer BC, OTHER ==
[~2023-11-10] VITALS: Ht 177.8 cm; Wt 91.0 kg
[2023-11-10] MEDS: NS 1,000 ML IV ONE (08:45)
[2023-11-10] MEDS ORDERED: propofoL 200 MG/20 ML VIAL As Ordered ONE (10:02)
[2023-11-10] MEDS ORDERED: LIDOCAINE 2% 100MG/5ML SDV (FOR ANES.) As Ordered ONE (10:03)
[2023-11-10 10:55] VITALS: BP 135/66; O2SAT 96
== END 2023-11-10 11:10 | disposition home or self-care (01) ==
LOC: M OPP 08:16
PROVIDERS: ATTEND Internal Medicine Gastroenterology
DX: Z12.11 Encounter for screening for malignant neoplasm of colon (principal); D12.2 Benign neoplasm of ascending colon; D12.3 Benign neoplasm of transverse colon; Z86.010 Personal history of colon polyps; K64.8 Other hemorrhoids; K57.30 Diverticulosis of large intestine without perforation or abscess without bleeding; Z79.1 Long term (current) use of non-steroidal anti-inflammatories (NSAID); Z88.0 Allergy status to penicillin; F17.210 Nicotine dependence, cigarettes, uncomplicated; K21.9 Gastro-esophageal reflux disease without esophagitis; Z90.89 Acquired absence of other organs

== ENCOUNTER → 2025-01-09 | Outpatient (REF) | payer OTHER, BC ==
[~2025-01-09] MED LIST changes: -ARIP10TA32; +ARIP10TA63
== END ==
LOC: M LAB REF 16:58
PROVIDERS: ATTEND Physician Assistant
DX: B34.9 Viral infection, unspecified (principal)